=== PATIENT | female | born 1990 | race Caucasian/White ===

== ENCOUNTER 2024-04-18 18:55 | Day surgery (SDC) | payer SELFPAY ==
[2024-04-18 19:19] VITALS: BMI 46.0
[2024-04-18 20:12] LABS: Bilirubin Neg (Negative); Blood, Urine 10 (Negative); Clarity Cloudy (Clear); Glucose, Urine (Dipstick) Normal (Negative); Ketone, Urine Negative (Negative); Leukocyte 25 (Negative); Nitrite Negative (Negative); Protein, Urine (Dipstick) 100 mg/dl (Neg-Trace)
[2024-04-18 20:36] LABS: Bacteria/HPF 3+ HPF (None Seen); CAUTI Indications for Culture Pregnancy; RBC/HPF 0-3 HPF (0-3)
[2024-04-18 20:37] LABS: Mucous/LPF 2+ LPF (<2+)
[2024-04-18 20:38] LABS: Urine Culture Reflex No No; Urine Culture Reflex Yes Yes
== END 2024-04-18 21:55 | disposition home or self-care (01) ==
LOC: CSHLD/OP 18:55
PROVIDERS: ATTEND Obstetrics & Gynecology
DX: O47.03 False labor before 37 completed weeks of gestation, third trimester (principal); O99.891 Other specified diseases and conditions complicating pregnancy; R03.0 Elevated blood-pressure reading, without diagnosis of hypertension; R51.9 Headache, unspecified; Z87.59 Personal history of other complications of pregnancy, childbirth and the puerperium; O34.211 Maternal care for low transverse scar from previous cesarean delivery; O13.3 Gestational [pregnancy-induced] hypertension without significant proteinuria, third trimester; Z79.899 Other long term (current) drug therapy; Z3A.36 36 weeks gestation of pregnancy
CPT/HCPCS: 81001; 87086; 99284

== ENCOUNTER 2024-04-20 13:39 | Outpatient (CLI) | payer OTHER ==
[2024-04-20 15:35] LABS: Hematocrit 38.8 % (34.9-44.5); Hemoglobin 12.7 g/dL (12.0-15.5); Platelet Count 241 10x3/uL (150-450)
[2024-04-20 16:17] LABS: Hep B Surf Ag Non-Reactive S/CO (NonReactive); Syphilis Antibody Nonreactive (Nonreactive); Syphilis Antibody Index 0.03 S/CO (<1.00 Non-Reactive)
== END 2024-04-20 13:40 | disposition home or self-care (01) ==
LOC: CSHLAB 13:39
PROVIDERS: ATTEND Obstetrics & Gynecology
DX: Z01.812 Encounter for preprocedural laboratory examination (principal); O24.419 Gestational diabetes mellitus in pregnancy, unspecified control; R03.0 Elevated blood-pressure reading, without diagnosis of hypertension
CPT/HCPCS: 85014; 85018; 85049; 86780; 86850; 86900; 86901; 87340

== ENCOUNTER 2024-04-23 12:59 | Inpatient (IN) | payer SELFPAY ==
[2024-04-23] MEDS ORDERED: Ondansetron PF 4 MG/2 ML Vial IVP PRN ×3 (13:47→18:39)
[2024-04-23] MEDS ORDERED: hydrALAZINE 20 MG/ML VIAL SLOW IVP PRN ×2 (13:47→18:39)
[2024-04-23] MEDS ORDERED: fentaNYL 50 mcg/mL 1 mL Vial SLOW IVP PRN ×2 (13:47→16:23)
[2024-04-23] MEDS ORDERED: Promethazine HCl 25 MG/ML VIAL IM PRN ×2 (13:47→16:23)
[2024-04-23] MEDS ORDERED: Bicitra 30 ML UDCUP PO PRN (13:47)
[2024-04-23] MEDS ORDERED: Lactated Ringer's 1,000 ML IV SCH (13:47)
[2024-04-23 13:52] VITALS: BMI 45.3
[2024-04-23] MEDS: CEFAZOLIN 2 GM in Sodium Chloride 0.9% 100 ML IVPB SCH (14:41)
[2024-04-23] MEDS: Famotidine/PF 20 mg/2ml Vial SLOW IVP PRN (14:42)
[2024-04-23] MEDS ORDERED: Naloxone HCl 0.4 mg/ml Vial IVP PRN ×2 (16:23)
[2024-04-23] MEDS ORDERED: Moisturizing Cream (Eucerin) 113 GM JAR TOP PRN (16:23)
[2024-04-23] MEDS ORDERED: HYDROmorphone 0.5 MG/0.5 ML SYRINGE SLOW IVP PRN (16:23)
[2024-04-23] MEDS ORDERED: Meperidine HCl/PF 25 MG (1 mL) VIAL SLOW IVP PRN (16:23)
[2024-04-23] MEDS ORDERED: Naloxone HCl 0.4 mg/ml Vial IV PRN (16:23)
[2024-04-23] MEDS ORDERED: diphenhydrAMINE 50 MG/ML VIAL IVP PRN (16:23)
[2024-04-23] MEDS: Oxytocin 30 units/NS 500 ML 500 ML IV SCH (16:26)
[2024-04-23] MEDS ORDERED: Communication Order-Pharmacy FS SCH (16:30)
[2024-04-23] MEDS: Ketorolac Tromethamine 30 MG (1 mL) VIAL IVP SCH (18:27)
[2024-04-23] MEDS: diphenhydrAMINE 25 MG CAP PO SCH (18:28)
[2024-04-23] MEDS ORDERED: diphenhydrAMINE 25 MG CAP PO PRN (18:39)
[2024-04-23] MEDS ORDERED: Lanolin Ointment 7 GM TUBE TOP PRN (18:39)
[2024-04-23] MEDS ORDERED: Bisacodyl 10 MG SUPP PR PRN (18:39)
[2024-04-23] MEDS ORDERED: Oxytocin 30 units/NS 500 ML 500 ML IV SCH (18:39)
[2024-04-24] MEDS: fentaNYL 50 mcg/mL 1 mL Vial ONE (02:43)
[2024-04-24] MEDS: Ondansetron PF 4 MG/2 ML Vial ONE (02:44)
[2024-04-24] MEDS: Oxytocin 10 UNITS/ML VIAL ONE (02:44)
[2024-04-24] MEDS: PHENYLEPHRINE-NS 100 MCG/ML 10 ML SYRINGE ONE (02:44)
[2024-04-24] MEDS: Morphine PF 10 MG/10 ML VIAL ONE (02:44)
[2024-04-24] MEDS: Ferrous Sulfate 325 MG TAB PO SCH (02:55)
[2024-04-24] MEDS: Docusate 100 MG CAP PO SCH (02:55)
[2024-04-24 03:54] LABS: Hematocrit 35.3 % (34.9-44.5); Hemoglobin 11.3 g/dL (12.0-15.5); Mean Corpuscular Hemoglobin 27.8 pg (27.0-33.0); Mean Corpuscular Volume 86.7 fL (81.6-98.3); Mean Platelet Volume 11.3 fL (7.4-10.4); Platelet Count 187 10x3/uL (150-450); RBC Distribution Width 14.7 % (11.5-14.5); Red Blood Cell (RBC) Count 4.07 10x6/uL (3.90-5.03); White Blood Cell (WBC) Count 11.4 10x3/uL (3.5-10.5)
[2024-04-24] MEDS: Ketorolac Tromethamine 30 MG (1 mL) VIAL IVP PRN (03:57)
[2024-04-24] MEDS: NIFEdipine XL 30 MG ER.TAB PO SCH (08:44)
[2024-04-24] MEDS: Prenatal Vitamin 1 TAB PO SCH (08:44)
[2024-04-24] MEDS: HYDROcodone/Acetaminophen 5/325 mg Tablet PO PRN ×2 (08:44→17:23)
[2024-04-24] MEDS: Boostrix 0.5 ML (Tdap) VIAL (>/=7 yrs of age) IM ONE (18:48)
[2024-04-24] MEDS: Ibuprofen 800 MG TAB PO SCH (20:03)
[2024-04-24] MEDS: Simethicone Chewable 80 MG TAB PO PRN (20:04)
[2024-04-25] MEDS: Ondansetron PF 4 MG/2 ML Vial IVP PRN (04:48)
[2024-04-25 11:35] VITALS: BP 121/67; TEMP 98.3
== END 2024-04-25 12:40 | disposition home or self-care (01) | DRG 788 ==
LOC: CSHLD 12:59 → CSHPP 19:30
PROVIDERS: ADMIT Obstetrics & Gynecology; ATTEND Obstetrics & Gynecology
PROC: 10D00Z1 Extraction of Products of Conception, Low, Open Approach (ICD-10-PCS; principal; 2024-04-23)
DX: O34.211 Maternal care for low transverse scar from previous cesarean delivery (principal); O24.429 Gestational diabetes mellitus in childbirth, unspecified control; O14.04 Mild to moderate pre-eclampsia, complicating childbirth; Z3A.37 37 weeks gestation of pregnancy; Z37.0 Single live birth; Z79.82 Long term (current) use of aspirin; O99.214 Obesity complicating childbirth
CPT/HCPCS: 36415; 36416; 51702; 85027; J1885; J2274; J2405; J2590; J3010; J3490